=== PATIENT | male | born 1935 | race Caucasian/White ===

== ENCOUNTER 2019-02-12 | Emergency (ER) | payer MEDICARE, OTHER ==
[2019-02-12 17:14] LABS: HEMATOCRIT 46.9 % (39.0-50.0); HEMOGLOBIN 15.4 g/dl (14.0-18.0); MEAN CELL VOLUME 92.1 fL CALC (80.0-100.0); MEAN CORPUSCULAR HGB 30.3 pG CALC (26.0-32.0); MEAN CORPUSCULAR HGB CONC 32.8 g/L CALC (32.0-36.0); NEUT# 23.86 thou/uL (1.82-7.42); RED BLOOD COUNT 5.09 mill/uL (4.70-6.10); RED CELL DISTRI WIDTH 13.8 % (11.5-15.5)
[2019-02-12 17:20] LABS: ALBUMIN 4.4 g/dL (3.2-5.0); ALKALINE PHOSPHATASE 81 u/l (38-126); ANION GAP 14 (6-22 (CALC)); BUN 27 mg/dL (8-23); BUN/CREATININE RATIO 21 (12-20 (CALC)); CARBON DIOXIDE 27 mmol/l (22-30); CHLORIDE 101 mmol/l (95-108); CREATININE 1.3 mg/dL (0.7-1.3); GFR 53 ML/MIN (>=60 (CALC)); GFR FOR AFR.AMER. > 60 ML/MIN (>=60 (CALC)); POTASSIUM 4.6 mmol/l (3.5-5.1); SODIUM 138 mmol/l (137-146); TOTAL PROTEIN 8.7 g/dL (6.3-8.2)
[2019-02-12 17:29] LABS: BILIRUBIN, TOTAL 1.1 mg/dL (0.0-1.4); SGOT/AST 45 u/l (19-48)
[2019-02-12 18:31] LABS: ACT PARTIAL THROMBO TIME 28.7 SECONDS (20.0-32.5)
[2019-02-12 18:33] LABS: INTERNATIONAL NORMALIZED RATIO 1.6 RATIO (0.7-1.3); PROTHROMBIN TIME 16.1 SECONDS (9.0-12.5)
== END 2019-02-12 20:43 ==
DX: I21.4 Non-ST elevation (NSTEMI) myocardial infarction (principal); J18.9 Pneumonia, unspecified organism; I10 Essential (primary) hypertension; J43.9 Emphysema, unspecified; I25.10 Atherosclerotic heart disease of native coronary artery without angina pectoris; Z95.5 Presence of coronary angioplasty implant and graft; Z95.0 Presence of cardiac pacemaker
CPT/HCPCS: J1644

== ENCOUNTER 2019-05-05 | Observation (INO) | payer MEDICARE, OTHER ==
--- NOTE | 2019-05-05 11:44 | NUR ---
PT TO ROOM VIA EMS STRETCHER.
--- NOTE | 2019-05-05 12:15 | NUR ---
PT REPORTS CONTINUED 8/10 PAIN TO CHEST. NOTIFIED. AWAITING NEW ORDERS.
[2019-05-05 12:20] LABS: IMMATURE GRANULOCYTES 0.4 % (0.0-5.0); MEAN CELL VOLUME 93.3 fL CALC (80.0-100.0); MEAN CORPUSCULAR HGB CONC 32.1 g/dL CAL (32.0-36.0); NEUT# 6.85 thou/uL (1.82-7.42); RED BLOOD COUNT 4.2 mill/uL (4.70-6.10); RED CELL DISTRI WIDTH 14.2 % (11.5-15.5)
[2019-05-05 12:22] LABS: HEMATOCRIT 39.2 % (39.0-50.0); HEMOGLOBIN 12.6 g/dl (14.0-18.0)
[2019-05-05 12:42] LABS: ALBUMIN 4.2 g/dL (3.2-5.0); ALKALINE PHOSPHATASE 72 u/l (38-126); AMYLASE 73 u/l (30-110); ANION GAP 13 (6-22 (CALC)); BILIRUBIN, TOTAL 0.9 mg/dL (0.0-1.4); BUN 18 mg/dL (8-23); BUN/CREATININE RATIO 14 (12-20 (CALC)); CARBON DIOXIDE 25 mmol/l (22-30); CHLORIDE 105 mmol/l (95-108); CREATININE 1.3 mg/dL (0.7-1.3); GFR 53 ML/MIN (>=60 (CALC)); GFR FOR AFR.AMER. > 60 ML/MIN (>=60 (CALC)); LIPASE 58 u/l (23-300); POTASSIUM 4.3 mmol/l (3.5-5.1); SGOT/AST 26 u/l (19-48); SODIUM 138 mmol/l (137-146); TOTAL PROTEIN 7.6 g/dL (6.3-8.2)
--- NOTE | 2019-05-05 12:44 | NUR ---
PT MEDICATED WITH MORPHINE FOR 7/10 PAIN TO CHEST.
[2019-05-05 12:50] LABS: MYOGLOBIN 109 ng/mL (0 - 121)
--- NOTE | 2019-05-05 13:20 | NUR ---
PT IS PAIN FREE AT THIS TIME.
[2019-05-05] MEDS ORDERED: ADULT ASPIRIN R81 MG PO (13:45)
[2019-05-05] MEDS ORDERED: COMBIVENT RESPIMAT IN (13:46)
[2019-05-05] MEDS ORDERED: NORVASC5 M1 PO (13:46)
[2019-05-05] MEDS ORDERED: WARFARIN4 MG PO (13:47)
[2019-05-05] MEDS ORDERED: DIGOXIN0.125 MG PO (13:47)
[2019-05-05] MEDS ORDERED: DILTIAZEM30 MG PO (13:48)
[2019-05-05] MEDS ORDERED: FLOVENT HF220 MCG/AC IN (13:48)
[2019-05-05] MEDS ORDERED: KLOR-CON M2020 MEQ PO (13:49)
[2019-05-05] MEDS ORDERED: FUROSEMIDE20 MG PO (13:49)
[2019-05-05] MEDS ORDERED: METOPROL TAR25 MG PO (13:50)
[2019-05-05] MEDS ORDERED: SINGULAIR10 MG PO (13:50)
[2019-05-05] MEDS ORDERED: MULTI VIT PO (13:51)
[2019-05-05] MEDS ORDERED: MUCINEX600 MG PO (13:51)
[2019-05-05] MEDS ORDERED: SIMVASTATIN20 MG PO (13:52)
[2019-05-05] MEDS ORDERED: IPRATROPIU0.5 MG/3 M IN (13:52)
[2019-05-05] MEDS ORDERED: PROTONIX40 M2 PO (13:52)
[2019-05-05] MEDS ORDERED: TAMSULOSIN HCL0.4 MG PO (13:53)
[2019-05-05] MEDS ORDERED: VITAMIN B-12500 MCG PO (13:54)
[2019-05-05] MEDS ORDERED: VITAMIN C1000 MG PO (13:54)
[2019-05-05] MEDS ORDERED: VITAMIN B PO (13:55)
--- NOTE | 2019-05-05 14:00 | NUR ---
PT RESTING IN STRETCHER IN NAD. PACED RHYTHM NOTED ON THE MONITOR. PT DENIES ANY CHEST PAIN. PT AWARE OF PLAN FOR ADMISSION AND WAIT TIME. CALL BAILEY WITHIN REACH.
--- NOTE | 2019-05-05 14:20 | NUR ---
REPORT REC FROM DESHAUN RODRIGUEZ.
--- NOTE | 2019-05-05 14:45 | NUR ---
REPORT CALLED TO ISAIAH PATEL.
--- NOTE | 2019-05-05 15:20 | NUR ---
Admission Note Report Given to: JENNIFER PATEL Transported by: X Wheelchair Stretcher Transported with: X Nurse Transporter X Patent IV X O2 X [employer] Telephone Clerk Location: ICU X MS2 PT TO ROOM 260 IN STABLE CONDITION CARE RELINQUISHED TO ISAIAH PATEL.
--- NOTE | 2019-05-05 15:23 | NUR ---
PT ARRIVED TO MS VIA WC ACCOMPANIED BY DESHAUN RODRIGUEZ AND DAUGHTER. PT A&O X3. NO DISTRESS NOTED. PT DENIES ANY CP AT THIS TIME. O2 VIA NC@ 3L IN [address] PER PT HE IS HOME DEPENDENT. NO OTHER NEEDS AT THIS TIME. ORIENTED PT TO ROOM. ASSESSMENT COMPLETED. CALL LIGHT IN REACH. CONTINUE TO MONITOR.
[2019-05-05 15:25] VITALS: BP 122/61
[2019-05-05 18:15] VITALS: BP 109/50
--- NOTE | 2019-05-05 18:21 | NUR ---
PT WITH AND DAUGHTER AT BEDSIDE. NO NEEDS AT THIS TIME. CALL LIGHT IN REACH. CONTINUE TO MONITOR.
--- NOTE | 2019-05-05 18:49 | NUR ---
CRITICAL TROP RESULT 2.930. LEONARD DIRECTOR OF PUBLIC SAFETY NOTIFIED PER LEONARD CALL RAJ. CARRILLO CALLED NO ANSWER. LEFT MESSAGE WAITING FOR A PHONE CALL BACK.
--- NOTE | 2019-05-05 18:57 | NUR ---
DR CARRILLO RETURNED PHONE CALL. PER [facility] TRANSFER TO [facility].
--- NOTE | 2019-05-05 18:59 | NUR ---
EXPLAINED TO PT AND FAMILY OF CURRENT SITUATION AND THAT [facility] WANTED TO TRANSFER TO [place]. PER PT HE WOULD LIKE TO BE TRANSFERED TO [facility] IN [place] DUE TO HIS POST SECONDARY PROFESSIONAL DR BARFIELD BEING OVER THERE. EXPLAINED TO PT THAT [facility] WOULD BE NOTIFIED
--- NOTE | 2019-05-05 19:02 | NUR ---
DR CARRILLO NOTIFIED ABOUT PTS WISHES TO TRANSFER TO [facility] PER ANDREAS CARRILLO STATED THAT IF TRANSFER WAS GOING TO TAKE LONG AND NO BEDS WERE AVAILABLE THAT PT WOULD HAVE TO BE TRANSFERED TO [place]. GLENDA NOTIFIED PT AND FAMILY. PER GLENDA THEY VERBALIZED UNDERSTANDING.
--- NOTE | 2019-05-05 19:05 | NUR ---
NURSING BLOWER FEEDER DYED RAW STOCK NOTIFIED ABOUT CURRENT SITUATION AND THE NEED TO TRANSFER.
[2019-05-05 19:42] LABS: INTERNATIONAL NORMALIZED RATIO 1.3 RATIO (0.7-1.3); PROTHROMBIN TIME 13.8 SECONDS (9.0-12.5)
--- NOTE | 2019-05-05 20:00 | NUR ---
EDITORIAL WRITER PREPARING PAPERWORK FOR TRANSPORT, PHYSICIAN OPHTHALMOLOGIST HAS NOTIFIED [facility] AND [facility] FOR ADMISSION/BED RECEIVAL.
--- NOTE | 2019-05-05 22:33 | NUR ---
TALKED W/[facility], THEY REPORT THAT THEY WILL BE HERE ABOUT 12:30AM FOR PT PICK-UP IF NOT SOONER TO TRANSPORT PT TO [facility] FOR [facility]. PT AND PT'S HAS BEEN INFORMED OF PICK-UP TIME AND PROVIDED ROOM NUMBER OF RECEIVING HOSPITAL. PT AND FAMILY AGREE W/THIS PLAN. AND DAUGHTER HAVE LEFT AT THIS TIME. PT IS STABLE AND REPORTS BEING ASYMPOTOMATIC.
[2019-05-05 23:32] VITALS: BP 114/52
--- NOTE | 2019-05-06 00:15 | NUR ---
PT OFF UNIT FLOOR VIA STRETCHER ACCOMPANIED BY [employer] TRANSPORT STAFF X2. PT IN STABLE CONDITION, ASYMPOTOMATIC.
--- NOTE | 2019-05-06 00:20 | NUR ---
REPORT CALLED TO KIMANI AT [facility].
== END 2019-05-06 00:15 ==
PROVIDERS: Family Medicine; ADMIT Internal Medicine
DX: I21.4 Non-ST elevation (NSTEMI) myocardial infarction (principal); I25.10 Atherosclerotic heart disease of native coronary artery without angina pectoris; J96.10 Chronic respiratory failure, unspecified whether with hypoxia or hypercapnia; I10 Essential (primary) hypertension; J43.9 Emphysema, unspecified; I48.91 Unspecified atrial fibrillation; E78.5 Hyperlipidemia, unspecified; Z95.0 Presence of cardiac pacemaker; Z87.891 Personal history of nicotine dependence; Z79.01 Long term (current) use of anticoagulants; Z99.81 Dependence on supplemental oxygen; Z95.5 Presence of coronary angioplasty implant and graft
CPT/HCPCS: G0378; J1650